=== PATIENT | male | born 1990 | race Caucasian/White ===

== ENCOUNTER 2018-10-11 16:14 | Emergency (ER) | payer OTHER ==
[2018-10-11 17:02] VITALS: BP 108/64
[2018-10-11] MEDS ORDERED: Ibuprofen TAB* 600 MG PO ONE (17:24)
--- NOTE | 2018-10-11 17:28 | ED ---
Lower Extremity - HPI Summary HPI Summary: David presented to the emergency department after twisting his left knee yesterday. He has had a history of patellar dislocations and believed the same thing happened yesterday. It is tender to range of motion and swollen, - History of Current Complaint Chief Complaint: UCLowerExtremity Stated Complaint: KNEE INJURY Time Seen by Provider: 10/11/18 17:06 Hx Obtained From: Patient Mechanism Of Injury: Twisted Onset of Pain: Immediate Onset/Duration: Hours Severity Initially: Moderate Severity Currently: Moderate Pain Intensity: 3 Timing: Constant Location: Is Discrete @ - Left knee Character Of Pain: Aching, Throbbing Associated Signs And Symptoms: Positive: Swelling Aggravating Factor(s): Standing, Ambulation, Movement, Weight Bearing Alleviating Factor(s): Nothing Able to Bear Weight: No - Allergies/Home Medications Allergies/Adverse Reactions: Allergies Allergy/AdvReac Type Severity Reaction Status Date / Time No Known Allergies Allergy Verified 10/11/18 16:48 Home Medications: Home Medications Escitalopram (NF) [Lexapro 10 mg (NF)] 10 mg PO DAILY 10/11/18 [History Confirmed 10/11/18] Estradiol [Estrace] 2 mg PO 10/11/18 [History] Gabapentin CAP(*) [Neurontin 100 mg CAP(*)] 10/11/18 [History] Spironolactone 100 mg PO 10/11/18 [History] PMH/Surg Hx/FS Hx/Imm Hx Previously Healthy: Yes Endocrine/Hematology History: Denies: Hx Diabetes, Hx Thyroid Disease Cardiovascular History: Denies: Hx Hypertension Respiratory History: Denies: Hx Asthma, Hx Chronic Obstructive Pulmonary Disease (COPD) GI History: Denies: Hx Ulcer Musculoskeletal History: Reports: Other Musculoskeletal History - Left knee dislocation Sensory History: Reports: Hx Contacts or Glasses Opthamlomology History: Reports: Hx Contacts or Glasses Neurological History: Reports: Other Neuro Impairments/Disorders - Asperger's Psychiatric History: Reports: Hx Anxiety, Hx Eating Disorder - Anorexia (per Royce), Hx Depression Denies: Hx Inpatient Treatment, Hx Suicide Attempt, Hx of Violent Episodes Against Others, Hx Substance Abuse - Surgical History Surgery Procedure, Year, and Place: Left Knee Dislocation Infectious Disease History: No Infectious Disease History: Denies: Hx Hepatitis, Hx Human Immunodeficiency Virus (HIV), Traveled Outside the [place] in Last 30 Days - Social History Alcohol Use: None Substance Use Type: Reports: None Smoking Status (MU): Never Smoked Tobacco Review of Systems Constitutional: Negative Positive: Decreased ROM Positive: Bruising - Right knee from unknown mechanism All Other Systems Reviewed And Are Negative: No Physical Exam - Summary Physical Exam Summary: He is nontoxic in appearance and vital signs are stable Vital Signs On Initial Exam: Initial Vitals Temp Pulse Resp BP Pulse Ox 98.9 F 78 16 108/64 100 10/11/18 16:54 10/11/18 16:54 10/11/18 16:54 10/11/18 16:54 10/11/18 16:54 Vital Signs Reviewed: Yes Appearance: Positive: Well-Appearing Skin: Positive: Warm, Dry Musculoskeletal: Positive: Edema Left - His left knee is swollen and tender to any active or passive ROM. Neurological: Positive: Normal Diagnostics - Vital Signs Vital Signs Temp Pulse Resp BP Pulse Ox 10/11/18 16:54 98.9 F 78 16 108/64 100 - Laboratory Lab Statement: Any lab studies that have been ordered have been reviewed, and results considered in the medical decision making process. - Radiology No standard instances Radiology Interpretation Completed By: Radiologist - Left knee joint effusion Lower Extremity Course/Dx - Course Course Of Treatment: David presented with a twisted and swollen left knee. He has a history of left patellar dislocations. X-ray showed a joint effusion and he was placed in the immobilizer with crutches if needed and follow-up with orthopedics. - Diagnoses Provider Diagnoses: Injury of left knee Discharge - Sign-Out/Discharge Documenting (check all that apply): Patient Departure All imaging exams completed and their final reports reviewed: Yes - Discharge Plan Condition: Stable Disposition: HOME Patient Education Materials: Swollen Knee Joint (ED), Knee Immobilizer (ED) Referrals: No Primary Care Phys,NOPCP [Primary Care Provider] - Geoff Andino MD [Medical Doctor] - - Billing Disposition and Condition Condition: STABLE Disposition: Home
== END 2018-10-11 18:52 | disposition home or self-care (01) ==
LOC: UCEAST 16:14
DX: S89.92XA Unspecified injury of left lower leg, initial encounter (principal); F41.9 Anxiety disorder, unspecified; F32.9 Major depressive disorder, single episode, unspecified; Z87.828 Personal history of other (healed) physical injury and trauma; Z79.899 Other long term (current) drug therapy; Z91.5 Personal history of self-harm; X50.9XXA Other and unspecified overexertion or strenuous movements or postures, initial encounter; Y92.9 Unspecified place or not applicable
CPT/HCPCS: 99213; A9270-GY; G0463

== ENCOUNTER 2019-01-14 12:31 | Emergency (ER) | payer OTHER ==
[2019-01-14 12:43] VITALS: BP 102/64
--- NOTE | 2019-01-14 12:51 | UC ---
UC General HPI - HPI Summary HPI Summary: 28-year-old male comes in with a chief complaint of needing a refill for his S Capello pram 10 mg by mouth daily. Patient ran out a few days ago he's been feeling a little bit anxious since he ran out. Denies any suicidal ideation. He gets his healthcare through [facility] and they're closed as today is Wednesday. - History of Current Complaint Chief Complaint: UCMedRefill Stated Complaint: MED REFILL Time Seen by Provider: 01/14/19 12:43 Pain Intensity: 0 - Allergy/Home Medications Allergies/Adverse Reactions: Allergies Allergy/AdvReac Type Severity Reaction Status Date / Time No Known Allergies Allergy Verified 01/14/19 12:36 Home Medications: Home Medications Estradiol [Estrace] 4 mg PO BEDTIME 01/14/19 [History Confirmed 01/14/19] PMH/Surg Hx/FS Hx/Imm Hx Previously Healthy: Yes Psychological History: Depression - Surgical History Surgical History: Yes Surgery Procedure, Year, and Place: Left Knee Dislocation SURGERY WITH SCREWS - ARTHROSCOPY X2-PRIOR TO SURGERY. LASIK EYE SURGERY - Family History Known Family History: Positive: Non-Contributory - Social History Alcohol Use: None Substance Use Type: None Smoking Status (MU): Never Smoked Tobacco - Immunization History Most Recent Influenza Vaccination: Unsure Most Recent Tetanus Shot: Unsure Most Recent Pneumonia Vaccination: Never Review of Systems All Other Systems Reviewed And Are Negative: Yes Constitutional: Positive: Negative Skin: Positive: Negative Eyes: Positive: Negative ENT: Positive: Negative Respiratory: Positive: Negative Cardiovascular: Positive: Negative Gastrointestinal: Positive: Negative Motor: Positive: Negative Neurovascular: Positive: Negative Musculoskeletal: Positive: Negative Neurological: Positive: Negative Psychological: Positive: Anxious Is Patient Immunocompromised?: No Physical Exam Triage Information Reviewed: Yes Appearance: Well-Appearing, No Pain Distress, Well-Nourished Vital Signs: Initial Vital Signs Temp 98.4 F 01/14/19 12:40 Pulse 98 01/14/19 12:40 Resp 18 01/14/19 12:40 BP 102/64 01/14/19 12:40 Pulse Ox 99 01/14/19 12:40 Vital Signs Reviewed: Yes Eye Exam: Normal Eyes: Positive: Conjunctiva Clear Neck: Positive: Supple Respiratory: Positive: Lungs clear, Normal breath sounds, No respiratory distress Cardiovascular: Positive: RRR Musculoskeletal Exam: Normal Musculoskeletal: Positive: Strength Intact, ROM Intact Neurological Exam: Normal Neurological: Positive: Alert, Muscle Tone Normal Psychological Exam: Normal Psychological: Positive: Age Appropriate Behavior Skin Exam: Normal Course/Dx - Course Course Of Treatment: [facility]U [facility] - Diagnoses Provider Diagnosis: Depression Discharge - Sign-Out/Discharge Documenting (check all that apply): Patient Departure All imaging exams completed and their final reports reviewed: No Studies - Discharge Plan Condition: Stable Disposition: HOME Prescriptions: Escitalopram Oxalate [Lexapro 10 mg] 10 mg PO DAILY #30 tab Patient Education Materials: Depression (ED) [facility]errals[facility]Provider Group] Additional Instructions: FOLLOW UP WITH YOUR DOCTOR. GET REEVALUATED SOONER FOR ANY WORSENING OF YOUR CONDITION OR ANY QUESTIONS OR CONCERNS. - Billing Disposition and Condition Condition: STABLE Disposition: Home
== END 2019-01-14 13:00 | disposition home or self-care (01) ==
LOC: UCEAST 12:31
DX: F32.9 Major depressive disorder, single episode, unspecified (principal); Z76.0 Encounter for issue of repeat prescription; Z79.899 Other long term (current) drug therapy
CPT/HCPCS: 99212; G0463